=== PATIENT | male | born 2000 | race Two or more races ===

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

== ENCOUNTER 2019-02-25 09:17 | Emergency (ER) | payer OTHER ==
[2019-02-25 09:52] VITALS: BP 96/58
--- NOTE | 2019-02-25 15:40 | UC ---
Respiratory Complaint HPI - HPI Summary HPI Summary: Head congestion and cough since last night. Pt states he is worried he has pneumonia. He recently stopped smoking 3 days ago and thinks this may just be his lungs "clearing out". - History of Current Complaint Chief Complaint: UCGeneralIllness Stated Complaint: CONGESTION/COUGH Time Seen by Provider: 02/25/19 09:56 Hx Obtained From: Patient Onset/Duration: Gradual Onset Timing: Constant Severity Initially: Mild Severity Currently: Mild Pain Intensity: 0 Pain Scale Used: 0-10 Numeric Aggravating Factors: Nothing Alleviating Factors: Nothing Associated Signs And Symptoms: Positive: URI, Nasal Congestion - Allergies/Home Medications Allergies/Adverse Reactions: Allergies Allergy/AdvReac Type Severity Reaction Status Date / Time No Known Allergies Allergy Verified 02/25/19 09:45 PMH/Surg Hx/FS Hx/Imm Hx Previously Healthy: Yes - Surgical History Surgical History: Yes Surgery Procedure, Year, and Place: ENDOSCOPIES SEVERAL- [facility] - Family History Known Family History: Positive: Other - depression - Social History Occupation: Employed Part-time Alcohol Use: Occasionally Substance Use Type: Marijuana Substance Use Comment - Amount & Last Used: daily Smoking Status (MU): Light Every Day Tobacco Smoker Type: Cigarettes Amount Used/How Often: 1 PPD Have You Smoked in the Last Year: Yes Household Exposure Type: Cigarettes, Cigars - Immunization History Most Recent Influenza Vaccination: 2015 (per father on 09/25/15) Most Recent Pneumonia Vaccination: as Review of Systems All Other Systems Reviewed And Are Negative: Yes ENT: Positive: Nasal Discharge, Sinus Congestion Respiratory: Positive: Cough Is Patient Immunocompromised?: No Physical Exam Triage Information Reviewed: Yes Appearance: Well-Appearing, No Pain Distress, Well-Nourished Vital Signs: Initial Vital Signs Temp 98.5 F 02/25/19 09:46 Pulse 81 02/25/19 09:46 Resp 16 02/25/19 09:46 BP 96/58 02/25/19 09:46 Pulse Ox 99 02/25/19 09:46 Vital Signs Reviewed: Yes Eyes: Positive: Conjunctiva Clear ENT: Positive: Pharynx normal, Nasal congestion, Nasal drainage - Clear nasal coryza, TMs normal, Uvula midline Neck: Positive: Supple, Nontender, No Lymphadenopathy Respiratory: Positive: Lungs clear, Normal breath sounds, No respiratory distress, No accessory muscle use Cardiovascular: Positive: RRR, No Murmur, Pulses Normal, Brisk Capillary Refill Neurological: Positive: Alert, Muscle Tone Normal Psychological Exam: Normal Skin Exam: Normal Respiratory Course/Dx - Course Course Of Treatment: CXR: negative Pt called at 1535 and given CXR results. (Computers had been down for > one hour) He is to rest, lots of fluids and recheck with his PCP in 3-4 days if no improvement. - Differential Dx/Diagnosis Provider Diagnosis: URI (upper respiratory infection) Discharge - Sign-Out/Discharge Documenting (check all that apply): Patient Departure All imaging exams completed and their final reports reviewed: Yes - Discharge Plan Condition: Stable Disposition: HOME Referrals: Cherelle Vasquez DO [Primary Care Provider] - - Billing Disposition and Condition Condition: STABLE Disposition: Home - Attestation Statements Provider Attestation: I was available for consult. This patient was seen by the [facility]ILSON. The patient was not presented to, seen by, or examined by me. Mark Brock MD
== END 2019-02-25 10:38 | disposition home or self-care (01) ==
LOC: UCEAST 09:17
DX: J06.9 Acute upper respiratory infection, unspecified (principal); F17.210 Nicotine dependence, cigarettes, uncomplicated
CPT/HCPCS: 71046; 99211; G0463